=== PATIENT | male | born 1955 | race Asian ===

== ENCOUNTER 2025-05-04 10:13 | Emergency (ER) | payer MEDICARE, OTHER ==
[~2025-05-04] VITALS: Ht 172.7 cm; Wt 77.7 kg
[~2025-05-04 10:13] MED LIST: IBUP-1689 PO
[2025-05-04] MEDS ORDERED: COLC-3 PO (10:20)
[2025-05-04] MEDS ORDERED: ALLO-97 PO (10:20)
[2025-05-04 10:41] LABS: PLATELET COUNT (AUTO) 366 K/uL (150-450); RED BLOOD CELL COUNT(AUTO) 6.87 MIL/uL (4.50-5.90); RED CELL DISTRIBUTION WIDTH 17.0 % (11.5-14.5); WHITE BLOOD COUNT (AUTO) 8.0 K/uL (4.5-11.0)
[2025-05-04 11:00] LABS: TROPONIN I-HIGH SENSITIVITY 14 ng/L (<76)
[2025-05-04] MEDS: PROPARACAINE HCL 0.5% 15 ML OPHTHALMIC SOLUTION OS ONE (11:07)
[2025-05-04] MEDS: FLUORESCEIN SODIUM 1 MG STRIP OD ONE (11:07)
[2025-05-04 11:15] VITALS: BP 136/83; PULSE 95; RESP 20; O2SAT 96
[2025-05-04 11:27] LABS: CALCIUM, TOTAL 8.6 mg/dL (8.8-10.5); CREATININE 2.08 mg/dL (0.60-1.30); GLOMERULAR FILTR. RATE CALC 32.0 mL/min (>60); GLUCOSE,RANDOM 137.0 mg/dL (70-110); SODIUM SERUM 138.0 mmol/L (136-145); UREA NITROGEN, BLOOD 25.0 mg/dL (7-18)
== END 2025-05-04 15:03 | disposition home or self-care (01) ==
LOC: EMS 10:33
DX: H53.8 Other visual disturbances (principal); M10.9 Gout, unspecified; Z79.899 Other long term (current) drug therapy
CPT/HCPCS: 80048; 82962; 84484; 85025; 93005; 99284